=== PATIENT | female | born 1985 | race Caucasian/White ===

== ENCOUNTER 2017-07-20 19:49 | Emergency (ER) | payer OTHER ==
--- NOTE | 2017-07-20 20:01 | PDOC ---
Rapid Medical Evaluation Chief Complaint: Pain Time Seen by Provider: 07/20/17 20:00 Medical Evaluation: Allergies Allergy/AdvReac Type Severity Reaction Status Date / Time No Known Allergies Allergy Verified 05/05/12 14:39 07/20/17 19:57 c/o vaginal spotting and lower abdominal pain. s/p miscarriage 1 month ago. 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 iqbal Plan: CBC, cmp, beta hcg, UA, UCX patient to the ER for further management 07/20/17 20:00
[2017-07-20 20:12] VITALS: BP 112/78; PULSE 79; TEMP 97.8; BMI 26.4
[2017-07-20 20:16] LABS: BASO % 0.5 % (0-2.0); EOS % 0.7 % (0-4.5); HEMATOCRIT 34.6 % (32.4-45.2); HEMOGLOBIN 11.1 GM/dL (10.7-15.3); LYMPH % 29.3 % (8-40); MCH 26.3 pg (25.7-33.7); MEAN CELL VOLUME 82.2 fl (80-96); MEAN PLT VOLUME 8.6 fl (7.5-11.1); MONO % 8.7 % (3.8-10.2); NEUT % 60.8 % (42.8-82.8); PLATELET COUNT 297 K/MM3 (134-434); RBC 4.21 M/mm3 (3.60-5.2); RDW 13.5 % (11.6-15.6); WHITE BLOOD COUNT 11.3 K/mm3 (4.0-10.0)
[2017-07-20 20:38] LABS: URINE APPEARANCE CLEAR; URINE BILIRUBIN NEGATIVE (NEGATIVE); URINE BLOOD 2+ (NEGATIVE); URINE COLOR LTYELLOW; URINE GLUCOSE (UA) NEGATIVE (NEGATIVE); URINE KETONE NEGATIVE (NEGATIVE); URINE NITRITE NEGATIVE (NEGATIVE); URINE PROTEIN NEGATIVE (NEGATIVE); URINE UROBILINOGEN NEGATIVE mg/dL (0.2-1.0)
--- NOTE | 2017-07-20 20:46 | PDOC ---
History of Present Illness - General Chief Complaint: Pain, Acute Stated Complaint: ABD PAIN Time Seen by Provider: 07/20/17 20:00 History Source: Patient Exam Limitations: No Limitations - History of Present Illness Initial Comments: 07/20/17 21:32 31F presents with history of miscarriage seen by Dr. Diaz presents with bleeding and abdominal pain bilaterally in the lower abdomen since this morning. She states that she was told she had a miscarriage on June 09, and since then spotting and milder abdominal pain but today was significantly worse. says that the beta HCG and kept trending down since that day and ultrasound was negative for . The couple denies having had intercourse since June 09. 07/20/17 23:13 Past History - Past Medical History Allergies/Adverse Reactions: Allergies Allergy/AdvReac Type Severity Reaction Status Date / Time No Known Allergies Allergy Verified 07/20/17 20:54 Home Medications: Ambulatory Orders Tablet 1 tab PO DAILY 03/08/12 Asthma: No Cancer: No Cardiac Disorders: No COPD: No Diabetes: No HTN: No Seizures: No Thyroid Disease: No Other medical history: spont AB 06/11 - Suicide/Smoking/Psychosocial Hx Smoking Status: No Smoking History: Never smoked Number of Cigarettes Smoked Daily: 0 Hx Alcohol Use: No Drug/Substance Use Hx: No Hx Substance Use Treatment: No Review of Systems - Review of Systems Able to Perform ROS?: Yes Is the patient limited Green[place]ic proficient: No Constitutional: No: Symptoms Reported HEENTM: No: Symptoms Reported Respiratory: No: Symptoms reported Cardiac (ROS): No: Symptoms Reported ABD/GI: Yes: See HPI. No: Abdominal Distended, Abd. Pain w/ defecation, Blood Streaked Bowels, Constipated, Difficulty Swallowing, Nausea, Rectal Bleeding, Vomiting : Yes: See HPI. No: Burning, Dysuria, Discharge, Flank Pain, Hematuria Musculoskeletal: No: Symptoms Reported Integumentary: No: Symptoms Reported Neurological: No: Symptoms reported *Physical Exam - Vital Signs Last Vital Signs Temp Pulse Resp BP Pulse Ox 97.8 F 79 16 112/78 100 07/20/17 19:58 07/20/17 19:58 07/20/17 19:58 07/20/17 19:58 07/20/17 19:58 - Physical Exam General Appearance: Yes: Nourished, Appropriately Dressed. No: Apparent Distress HEENT: positive: EOMI, CARMELO, Normal ENT Inspection Respiratory/Chest: positive: Lungs Clear, Normal Breath Sounds. negative: Chest Tender, Respiratory Distress Cardiovascular: positive: Regular Rhythm, Regular Rate, S1, S2 Gastrointestinal/Abdominal: positive: Normal Bowel Sounds, Tender (bilaterally, lower quadrant. ), Flat, Soft Musculoskeletal: positive: Normal Inspection. negative: CVA Tenderness Integumentary: positive: Normal Color, Dry, Warm Neurologic: positive: Fully Oriented, Alert, Normal Mood/Affect ED Treatment Course - LABORATORY CBC & Chemistry Diagram: 07/20/17 20:04 07/20/17 20:04 - ADDITIONAL ORDERS Additional order review: 07/20/17 20:04 RBC 4.21 MCV 82.2 MCHC 32.0 RDW 13.5 D MPV 8.6 Neutrophils % 60.8 D Lymphocytes % 29.3 D Monocytes % 8.7 Eosinophils % 0.7 Basophils % 0.5 Medical Decision Making - Medical Decision Making 07/20/17 23:28 TVUS: 1. No evidence of ovarian torsion or acute pathology. 2. Complex fluid within the cul-de-sac and both adnexal regions that may represent blood. Clinical correlation and follow-up recommended. BetaHC. All labs within normal limits. Spoke to Dr. Diaz who will see the patient in her office tomorrow. Advised giving methotrexate if u/s is positive for ectopic , which they were not. 07/20/17 23:37 *DC/Admit/Observation/Transfer Diagnosis at time of Disposition: Vaginal bleeding in - Discharge Dispostion Disposition: HOME Condition at time of disposition: Improved Admit: No - Referrals Referrals: Jami Diaz MD [Staff Physician] - - Patient Instructions Printed Discharge Instructions: DI for Vaginal Bleeding During , DI for Vaginal Bleeding Additional Instructions: Follow up with Dr. Diaz tomorrow. Come back to the ER for any new, worsening or concerning symptom. Print Language: MALTESE - Post Discharge Activity
[2017-07-20 20:48] LABS: ALBUMIN 3.8 g/dl (3.4-5.0); ALK PHOS 128 U/L (45-117); ANION GAP 8 (8-16); BILIRUBIN,TOTAL 0.3 mg/dL (0.2-1.0); BLOOD UREA NITROGEN 12 mg/dL (7-18); CALCIUM 8.4 mg/dL (8.5-10.1); CHLORIDE 104 mmol/L (98-107); CO2 26 mmol/L (21-32); CREATININE 0.7 mg/dL (0.55-1.02); GLUCOSE,RANDOM 81 mg/dL (74-106); POTASSIUM 3.9 mmol/L (3.5-5.1); SGOT/AST 14 U/L (15-37); SGPT/ALT 16 U/L (12-78); SODIUM 138 mmol/L (136-145); TOT PROT 7.9 g/dl (6.4-8.2)
[2017-07-20 20:51] LABS: URINE LEUK ESTERASE 1+ (NEGATIVE)
[2017-07-20] MEDS ORDERED: ACETAMINOPHEN 500 MG TABLET (FP) PO ONE (20:51)
--- NOTE | 2017-07-20 20:53 | PDOC ---
Attending Attestation - Resident Resident Name: Moises Adrian - ED Attending Attestation I have performed the following: I have examined & evaluated the patient, The case was reviewed & discussed with the resident, I agree w/resident's findings & plan, Exceptions are as noted - HPI HPI: 07/20/17 20:52 pregnanat 31 yo female p/w vaginal bleeding and cramping - Physicial Exam PE: 07/20/17 21:14 31-year-old female presents with cramping and vaginal bleeding. She states that she had a miscarriage June 09, but has had vaginal spotting since that time. Today she had increased vaginal bleeding and cramping 07/20/17 21:15 head ncat neck supple lungs cta b/l cvs [id number] abd no rebound.no guarding pelvic blood in vaginal vault extremities no edema.no erythema neuri axox3,ambulatory skin warm and dry psych appropriate - Medical Decision Making 07/20/17 21:17 bhcg is 184, need to see if this is new ,if its an ectopic ,? products of conception 07/20/17 22:34 Case was discussed with vp & general counsel Dr. Rayo who saw this patient July 15 for her The patient had and has been followed beta-hCG , on Jun 23 the bhcg was about 1000 Today, beta-hCG is 184. Patient does not have a significant anemia. Transvaginal ultrasound shows normal ovaries, no ovarian torsion, no adnexal masses, complex fluid in the cul-de-sac, most likely blood. zimp is progress/ pt to see her vp & general counsel tomorrow
[2017-07-20 20:54] LABS: EPI CELLS RARE /HPF (FEW); URINE BACTERIA RARE /hpf (NONE SEEN); URINE HYALINE CAST 1 /lpf; URINE MUCUS RARE
[2017-07-20] MEDS ORDERED: ACETAMINOPHEN 325 MG TABLET (FP) ONE (20:56)
[2017-07-20] MEDS ORDERED: NAPROXEN 500 MG TABLET (FP) PO ONE (22:45)
[2017-07-20] MEDS ORDERED: IBUPROFEN 600 MG TABLET (FP) PO ONE ×2 (22:55)
== END 2017-07-20 22:57 | disposition home or self-care (01) ==
LOC: JER 19:49
DX: N93.9 Abnormal uterine and vaginal bleeding, unspecified (principal)
CPT/HCPCS: 36415; 76830-TC; 80053; 81003; 81015; 84702; 85025; 86850; 86900; 86901; 87086; 99283-25

== ENCOUNTER 2019-03-23 07:20 | Inpatient (IN) | payer OTHER ==
[2019-03-23 08:50] LABS: BASO % 0.5 % (0-2.0); EOS % 0.6 % (0-4.5); HEMATOCRIT 34.5 % (32.4-45.2); HEMOGLOBIN 11.3 GM/dL (10.7-15.3); LYMPH % 15.2 % (8-40); MCH 27.2 pg (25.7-33.7); MCHC 32.8 g/dl (32.0-36.0); MEAN CELL VOLUME 82.8 fl (80-96); MEAN PLT VOLUME 8.3 fl (7.5-11.1); MONO % 6.1 % (3.8-10.2); NEUT % 77.6 % (42.8-82.8); PLATELET COUNT 296 K/MM3 (134-434); RBC 4.16 M/mm3 (3.60-5.2); RDW 14.6 % (11.6-15.6); WHITE BLOOD COUNT 12.1 K/mm3 (4.0-10.0)
[2019-03-23 09:02] LABS: CALCIUM 8.7 mg/dL (8.5-10.1); CREATININE 0.5 mg/dL (0.55-1.3); POTASSIUM 3.9 mmol/L (3.5-5.1)
--- NOTE | 2019-03-23 09:05 | HP ---
Past Medical History - Admission History of Present Illness: 33 y/o P1 female at 38.5 weeks here in labor. complicated by anxiety/ depression, on lexapro and lorazepam throughout . GDM as well, no meds for GDM. Has followed with MFM throughout . History Source: Patient, Medical Record Limitations to Obtaining History: No Limitations - Past Medical History Cardiovascular: No: HTN Pulmonary: No: Asthma, COPD Reproductive: No: Ectopic , Endometriosis, Fibroids ...: 2 ...Para: 1 ...Term: 1 ...LMP: 06/25/18 ... Weeks Gestation by Dates: 38.5 ...EDC by Dates: 04/01/19 Heme/Onc: No: Anemia Infectious Disease: No: HIV, MRSA, STD's Psych: Yes: Anxiety, Depression - Past Surgical History Past Surgical History: Yes: None Hx Myomectomy: No Hx Transabdominal Cerclage: No - Smoking History Smoking history: Never smoked Have you smoked in the past 12 months: No Aproximately how many cigarettes per day: 0 - Alcohol/Substance Use Hx Alcohol Use: No - Social History Usual Living Arrangement: Yes: With Spouse ADL: Independent History of Recent Travel: No Home Medications - Allergies Allergies/Adverse Reactions: Allergies Allergy/AdvReac Type Severity Reaction Status Date / Time No Known Allergies Allergy Verified 03/23/19 08:38 - Home Medications Home Medications: Ambulatory Orders Tablet 1 tab PO DAILY 03/08/12 Escitalopram Oxalate [Lexapro -] 15 mg PO DAILY 03/23/19 Lorazepam 0.25 mg PO TID PRN 03/23/19 Review of Systems - Review of Systems Constitutional: reports: No Symptoms Eyes: reports: No Symptoms HENT: reports: No Symptoms Neck: reports: No Symptoms Cardiovascular: reports: No Symptoms Respiratory: reports: No Symptoms Gastrointestinal: reports: No Symptoms Genitourinary: reports: Other (contractions). denies: Vaginal Bleeding Breasts: reports: No Symptoms Reported Musculoskeletal: reports: No Symptoms Integumentary: reports: No Symptoms Neurological: reports: No Symptoms Endocrine: reports: No Symptoms Hematology/Lymphatic: reports: No Symptoms Physical Exam - Maternity Vital Signs: Vital Signs Temperature 98.7 F 03/23/19 08:00 Pulse Rate 63 03/23/19 08:00 Respiratory Rate 18 03/23/19 08:00 Blood Pressure 110/50 L 03/23/19 08:00 O2 Sat by Pulse Oximetry (%) Constitutional: Yes: Well Nourished, No Distress, Calm HENT: Yes: Atraumatic Neck: Yes: Supple Cardiovascular: Yes: Regular Rate and Rhythm Lungs: Clear to auscultation Breast(s): Yes: WNL - Abdominal Exam/OB Fundal Height: 38 Number of Fetuses: Single Presentation: Vertex Contractions: Yes Regularity: Regular Category: I Accelerations: Uniform Decelerations: None - Vaginal Exam/OB Vaginal Bleediing: No Dilatation (cm): 6 Amniotic Membrane Status: Intact (exam per nursing staff) - Physical Exam Psychiatric: Yes: Alert, Oriented - Labs Lab Results: CBC, BMP 03/23/19 08:22 03/23/19 08:22 Hemorrhage Risk Assessment - Risk Factors Medium Risk Factors: Yes: None High Risk Factors: Yes: None Risk Score: 1 Risk Level: Medium Risk Problem List - Problems (1) Gestational diabetes Code(s): O24.419 - GESTATIONAL DIABETES MELLITUS IN , UNSP CONTROL Qualifiers: Gestational diabetes mellitus control: diet-controlled (2) Active labor at term Code(s): EAC1767 - Assessment/Plan 33 y/o P1 with SIUP at 38.5 weeks, GDM, active labor, depression FHTS cat 1 admitted to L&D expectant management GBS neg depression/anxiety - continue home meds, neonatology made aware during her and will inform them today as well
[2019-03-23 09:09] LABS: INR 0.94 (0.83-1.09); PROTHROMBIN TIME (PATIENT) 11.1 SEC (9.7-13.0)
[2019-03-23 09:14] LABS: RPR NONREACTIVE (NONREACTIVE)
--- NOTE | 2019-03-23 09:48 | PN ---
Ante-Partal Exam - Subjective Subjective: Pt tolerating contractions. Vital Signs: Vital Signs Temperature 98.7 F 03/23/19 08:00 Pulse Rate 63 03/23/19 08:00 Respiratory Rate 18 03/23/19 08:00 Blood Pressure 110/50 L 03/23/19 08:00 O2 Sat by Pulse Oximetry (%) Headache: No Visual changes: No Right upper quadrant pain: No - Contractions Contractions: Yes Regularity: Regular Intensity: Mod/Strong - Exam during Labor Variability: Moderate Category: I Monitor Accelerations: Present Monitor Decelerations: None Exam: Vaginal Dilatation (cm): 7 Effacement (%): 90 Amniotic Membrane Status: Ruptured (AROM for clear fluid) Amniotic Fluid: Meconium Stained Meconium Staining: Light Presentation: Vertex Station: -1 - Intrapartum Hemorrhage Risk Medium Risk Factors: None High Risk Factors: None Risk Score: 0 Risk Level: Low Risk - Assessment/Plan Assessment/Plan: 33 y/o with SIUP at 38.5 weeks, GDM, depression/anxiety FHTS cat 1 AROM for clear fluid at this check continue expectant management pain meds prn pt on lexapro/lorazepam - neonatology aware, will discuss breast feeding with pmo consultant as pt hesitant to breast feed on meds anticipate
[2019-03-23] MEDS ORDERED: ELECTROLYTE-148 SOLN 1,000 ML IV SCH (10:30)
[2019-03-23] MEDS ORDERED: BUPIVACAINE HCL/PF 2.5 MG/ML - 30 ML VIAL IJ ONE (10:39)
--- NOTE | 2019-03-23 10:43 | PN ---
Ante-Partal Exam - Subjective Subjective: Pt feeling pain Vital Signs: Vital Signs Temperature 98.4 F 03/23/19 10:00 Pulse Rate 83 03/23/19 10:00 Respiratory Rate 20 03/23/19 10:00 Blood Pressure 116/62 03/23/19 10:00 O2 Sat by Pulse Oximetry (%) Bleeding: No Headache: No Visual changes: No Right upper quadrant pain: No Pain (scale 1-10): 8 - Contractions Contractions: Yes Regularity: Regular - Exam during Labor Heart Rate: 130 Variability: Moderate Category: I Monitor Accelerations: Present Monitor Decelerations: None Exam: Vaginal Dilatation (cm): 8 Effacement (%): 90 Presentation: Vertex Station: -1 - Assessment/Plan Assessment/Plan: Pt with pain anesthesia to come up and do spinal for pain relief anticipate
[2019-03-23] MEDS ORDERED: OXYTOCIN 20 UNITS in 0.9% NS 20 UNIT/1,000 ML INFUS.BAG IV ONE (11:32)
[2019-03-23] MEDS ORDERED: BENZOCAINE 28 GM HEMORRHOIDAL OINTMENT TP PRN (11:55)
[2019-03-23] MEDS ORDERED: BENZOCAINE 20% 57 GM BOTTLE TP PRN (11:55)
[2019-03-23] MEDS ORDERED: METHYLERGONOVINE MALEATE 0.2 MG/1 ML AMP IM PRN (11:55)
[2019-03-23] MEDS ORDERED: WITCH HAZEL 50% (TUCKS) 40 PAD/JAR PAD TP PRN (11:55)
[2019-03-23] MEDS ORDERED: BISACODYL 10 MG SUPP.RECT RC PRN (11:55)
--- NOTE | 2019-03-23 11:58 | PN ---
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 Present: No Infant Gender: Female Position: Left, OA - 1 Minute Total Score: 9 5 Minutes Total Score: 9 - [place] Feeding Plan Initial Plan: Elected not to breastfeed exclusively throughout hospitalization Remarks - Remarks Remarks: Uncomplicated delivery of baby girl from JOLLY position anterior shoulder (right) delivered with ease along with remainder of 3vc noted, clamped and cut placenta delivered in tact, spontaneously 2nd degree lac noted, repaired with 2-0 chromic in usual fashion sponge and needle count correct after delivery mom stable baby to well baby nursery oxytocin infusing after delivery
[2019-03-23] MEDS ORDERED: OXYTOCIN 20 UNITS in 0.9% NS 20 UNIT/1,000 ML INFUS.BAG IV SCH (12:00)
[2019-03-23] MEDS ORDERED: LORazepam 0.5 MG TABLET PO PRN (12:00)
[2019-03-23] MEDS: ESCITALOPRAM OXALATE 10 MG TABLET (FP) PO SCH (12:30)
[2019-03-23] MEDS: ACETAMINOPHEN 325 MG TABLET (FP) PO PRN (22:15)
[2019-03-23] MEDS: IBUPROFEN 600 MG TABLET (FP) PO PRN (22:16)
--- NOTE | 2019-03-24 07:40 | PN ---
Post Progress Note - Subjective Subjective: Pt seen/evaluated and doing well. No complaints. Has cramping that improves with medication. Tolerating diet, ambulating, voiding. Mood stable. Type of Delivery: Vital Signs: Vital Signs Temperature 98.5 F 03/24/19 06:00 Pulse Rate 62 03/24/19 06:00 Respiratory Rate 18 03/24/19 06:00 Blood Pressure 101/62 03/24/19 06:00 O2 Sat by Pulse Oximetry (%) Uterus: Yes: Fundus Firm Abdomen/GI: Yes: Abdomen soft, Passing flatus, Tolerating PO Lochia: Yes: Rubra Lochia, amount: Small Extremities: Yes: Calves non-tender Perineum: Yes: Laceration Activity: Ambulating - Labs Labs: CBC WBC 12.1 K/mm3 (4.0-10.0) H 03/23/19 08:22 RBC 4.16 M/mm3 (3.60-5.2) 03/23/19 08:22 Hgb 11.3 GM/dL (10.7-15.3) 03/23/19 08:22 Hct 34.5 % (32.4-45.2) 03/23/19 08:22 MCV 82.8 fl (80-96) 03/23/19 08:22 MCH 27.2 pg (25.7-33.7) 03/23/19 08:22 MCHC 32.8 g/dl (32.0-36.0) 03/23/19 08:22 RDW 14.6 % (11.6-15.6) 03/23/19 08:22 Plt Count 296 K/MM3 (134-434) 03/23/19 08:22 MPV 8.3 fl (7.5-11.1) 03/23/19 08:22 Absolute Neuts (auto) 9.4 K/mm3 (1.5-8.0) H 03/23/19 08:22 Neutrophils % 77.6 % (42.8-82.8) D 03/23/19 08:22 Lymphocytes % 15.2 % (8-40) D 03/23/19 08:22 Monocytes % 6.1 % (3.8-10.2) 03/23/19 08:22 Eosinophils % 0.6 % (0-4.5) 03/23/19 08:22 Basophils % 0.5 % (0-2.0) 03/23/19 08:22 Nucleated RBC % 0 % (0-0) 03/23/19 08:22 Problem List - Problems (1) Gestational diabetes Code(s): O24.419 - GESTATIONAL DIABETES MELLITUS IN , UNSP CONTROL Qualifiers: Gestational diabetes mellitus control: diet-controlled (2) Active labor at term Code(s): IAN3686 - (3) Vaginal delivery Code(s): O80 - ENCOUNTER FOR FULL-TERM UNCOMPLICATED DELIVERY Assessment/Plan 33 y/o PPD#1 s/p normal regular diet PO pain meds await CBC continue lexapro/lorazepam for anxiety and depression, pt has outpatient psych with which she plans to follow if mood seems changed in patient will have psych come see routine care
[2019-03-24 08:39] LABS: BASO % 0.5 % (0-2.0); EOS % 2.1 % (0-4.5); HEMATOCRIT 32.1 % (32.4-45.2); HEMOGLOBIN 10.3 GM/dL (10.7-15.3); LYMPH % 20.5 % (8-40); MCHC 32.2 g/dl (32.0-36.0); MEAN CELL VOLUME 83.7 fl (80-96); MEAN PLT VOLUME 8.5 fl (7.5-11.1); MONO % 6.1 % (3.8-10.2); NEUT % 70.8 % (42.8-82.8); PLATELET COUNT 258 K/MM3 (134-434); RBC 3.83 M/mm3 (3.60-5.2); RDW 14.4 % (11.6-15.6); WHITE BLOOD COUNT 13.7 K/mm3 (4.0-10.0)
[2019-03-24] MEDS: PRENATAL VITAMINS W/ FOLIC ACID TABLET (FP) PO SCH (09:38)
[2019-03-24] MEDS ORDERED: DIPHTH,PERTUSS(ACELL),TET 0.5 ML DISP.SYRIN IM ONE (10:00)
[2019-03-24] MEDS: ESCITALOPRAM OXALATE 10 MG TABLET (FP) PO SCH (11:41)
[2019-03-24] MEDS: IBUPROFEN 600 MG TABLET (FP) PO PRN (17:18)
[2019-03-24] MEDS: ACETAMINOPHEN 325 MG TABLET (FP) PO PRN (17:19)
[2019-03-24] MEDS ORDERED: SENNOSIDES/DOCUSATE COMBO (SENNA PLUS) TABLET (UD) PO PRN (22:00)
[2019-03-25 08:25] VITALS: BP 110/74; PULSE 62; TEMP 98.5
[2019-03-25] MEDS: PRENATAL VITAMINS W/ FOLIC ACID TABLET (FP) PO SCH (10:38)
[2019-03-25] MEDS: ESCITALOPRAM OXALATE 10 MG TABLET (FP) PO SCH (10:39)
--- NOTE | 2019-03-25 11:32 | DS ---
Physical Exam-[facility] Vital Signs: Vital Signs Temperature 98.5 F 03/25/19 07:10 Pulse Rate 62 03/25/19 07:10 Respiratory Rate 18 03/25/19 07:10 Blood Pressure 110/74 03/25/19 07:10 O2 Sat by Pulse Oximetry (%) Constitutional: Yes: Well Nourished, No Distress Gastrointestinal: Yes: WNL, Soft ....Post : Yes: Uterus firm, Uterus non-tender Breast(s): Yes: WNL Musculoskeletal: Yes: WNL Extremities: Yes: WNL Edema: No Neurological: Yes: WNL, Alert, Oriented Labs: CBC, BMP 03/24/19 08:05 03/23/19 08:22 Delivery - Delivery Vaginal Delivery: No Problems Type of Anesthesia: Local Episiotomy/Laceration: 2nd degree EBL (cc): 300 Delivery, Single - Stages of Labor Date 1st Stage Initiatied: 03/23/19 Time 1st Stage Initiated: 01:00 Date 2nd Stage Initiated: 03/23/19 Time 2nd Stage Initiated: 11:30 Date of Delivery: 03/23/19 Time of Delivery: 11:42 Time Placenta Delivered: 11:45 Placenta: Yes: Spontaneous - Condition of Infant Steam And 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/Stack Yield Engineer Present: No Gender: Female Position: Left, OA Total Hours ROM (Hrs/Mins): 2H - 1 Minute Total Score: 9 5 Minutes Total Score: 9 - Feeding Plan Initial Plan: Elected not to breastfeed exclusively throughout hospitalization Discharge Summary Problems reviewed: Yes Reason For Visit: LABOR Current Active Problems Active labor at term (Acute) Gestational diabetes (Acute) Vaginal delivery (Acute) Procedures: Principal: normal vaginal delivery Hospital Course: unremarkable Condition: Good - Instructions Diet, Activity, Other Instructions: Physical activity Resume your normal everyday activity as tolerated no heavy lifting or exercise until seen by your surgeon. You may walk unlimited sourav of and climb stairs. You may resume driving the car when you feel safe and comfortable behind the wheel. No sexual activity as instructed. Wound care If you have a bandage, leave it on, and keep dry for 48-72 hours. After that time discard the outer bandage. If they are tapes on the skin under the out of bandage leave them in place. They will peel off in the next 7 to 10 days. Do Not Peel them off. You may shower the day after surgery. If there are tapes present on the skin, you may shower over them. Diet There are no dietary restrictions. Eat healthy, high-fiber foods. Drink 6 to 8 glasses of liquid each day. This will assist in keeping your bowels are regular. Pain management You may take Tylenol or acetaminophen or Ibuprofen (for example, Motrin, Advil etc.) from my pain prescription medication is ordered should be taken as prescribed for moderate to severe pain. Call MD for any of the following: Severe pain not relieved by medication Fever of 101 or higher Excessive bleeding or drainage on dressing Inability to urinate Call Dr. Diaz and make appt. to be seen in 4 to 6 weeks. Referrals: Jami Diaz MD [Staff Physician] - Disposition: HOME - Home Medications Comprehensive Discharge Medication List: Ambulatory Orders Tablet 1 tab PO DAILY 03/08/12 Escitalopram Oxalate [Lexapro -] 15 mg PO DAILY 03/23/19 Lorazepam 0.25 mg PO TID PRN 03/23/19 Ibuprofen [Motrin -] 600 mg PO QID #28 tablet 03/25/19
== END 2019-03-25 13:45 | disposition home or self-care (01) | DRG 807 ==
LOC: JLDR 07:20 → J3W 13:23
PROVIDERS: ADMIT Obstetrics & Gynecology; ATTEND Obstetrics & Gynecology
PROC: 0KQM0ZZ Repair Perineum Muscle, Open Approach (ICD-10-PCS; principal; 2019-03-23)
PROC: 10E0XZZ Delivery of Products of Conception, External Approach (ICD-10-PCS; 2019-03-23)
DX: O24.420 Gestational diabetes mellitus in childbirth, diet controlled (principal); Z37.0 Single live birth; O99.344 Other mental disorders complicating childbirth; F32.9 Major depressive disorder, single episode, unspecified; F41.9 Anxiety disorder, unspecified; O70.1 Second degree perineal laceration during delivery; Z3A.38 38 weeks gestation of pregnancy
CPT/HCPCS: 36415; 59409; 80048; 85025; 85610; 85730; 86593; 86850; 86900; 86901; 87389; 90715